=== PATIENT | female | born 1995 | race American Indian/Alaskan Native ===

== ENCOUNTER 2020-11-25 14:15 | Emergency (ER) | payer SELFPAY ==
[2020-11-25 14:47] VITALS: BP 150/103
== END 2020-11-25 20:00 | disposition left against medical advice (07) ==
LOC: ED 14:15
DX: S69.91XA Unspecified injury of right wrist, hand and finger(s), initial encounter (principal); Z53.21 Procedure and treatment not carried out due to patient leaving prior to being seen by health care provider; X58.XXXA Exposure to other specified factors, initial encounter; Y93.89 Activity, other specified; Y92.89 Other specified places as the place of occurrence of the external cause; Y99.8 Other external cause status